=== PATIENT | female | born 1950 | race Caucasian/White ===

== ENCOUNTER → 2016-11-11 | Outpatient (CLI) | payer MEDICAID ==
[2016-11-11 19:13] LABS: AMPHETAMINES/METAMPHETAMINES NEGATIVE ng/mL (<1000)
== END ==
LOC: LAB 17:44
PROVIDERS: Emergency Medicine
DX: Z79.899 Other long term (current) drug therapy (principal)

== ENCOUNTER → 2017-01-07 | Outpatient (CLI) | payer MEDICAID ==
[2017-01-07 19:16] LABS: AMPHETAMINES/METAMPHETAMINES NEGATIVE ng/mL (<1000)
== END ==
LOC: LAB 18:25
PROVIDERS: Emergency Medicine
DX: Z79.899 Other long term (current) drug therapy (principal)

== ENCOUNTER → 2017-03-05 | Outpatient (CLI) | payer MEDICARE, MEDICAID ==
--- NOTE | 2017-03-05 14:21 | CARDIOVASCULAR REPORT ---
"Cerebrovascular Exam Indications: 785.9 Bruit. 433.10 Occlusion/stenosis of carotid artery without cerebral infarction. IMPRESSIONS 1. The bilateral vertebral arteries are patent with normal antegrade flow. 2. Study suggests 20-49%(upper end of scale)stenosis involving the right internal carotid artery and the left internal carotid artery. History: A bruit of the right carotid artery. A bruit of the left carotid artery. Coronary artery disease. Risk factors: Hypertension. Hyperlipidemia. Carotid duplex study. Complete study and Doppler flow study including spectral analysis, color and gardner scale imaging. Height: Height: 157.5cm. Height: 62in. Weight: Weight: 103.4kg. Weight: 227.5lb. Body mass index: BMI: 41.7kg/m^2. Body surface area: BSA: 2.18m^2. Location: Vascular laboratory. Patient status: Outpatient. Tables: Arterial flow: + +--------+--------+ |Location |V sys |V ed | + +--------+--------+ |Right CCA - proximal|40.1cm/s|10.2cm/s| + +--------+--------+ |Right CCA - distal |57.4cm/s|15.7cm/s| + +--------+--------+ |Right ECA |299cm/s |--------| + +--------+--------+ |Right ICA - proximal|107cm/s |23.6cm/s| + +--------+--------+ |Right ICA - mid |121cm/s |25.1cm/s| + +--------+--------+ |Right ICA - distal |80.1cm/s|20.4cm/s| + +--------+--------+ |Right vertebral |59.7cm/s|--------| + +--------+--------+ |Left CCA - proximal |69.1cm/s|18.9cm/s| + +--------+--------+ |Left CCA - distal |56.1cm/s|15.7cm/s| + +--------+--------+ |Left ECA |121cm/s |--------| + +--------+--------+ |Left ICA - proximal |119cm/s |24.7cm/s| + +--------+--------+ |Left ICA - mid |89.8cm/s|24.7cm/s| + +--------+--------+ |Left ICA - distal |88.7cm/s|19.1cm/s| + +--------+--------+ |Left vertebral |50.5cm/s|--------| + +--------+--------+ Velocity ratios: + + + + + + | |Right, V sys|Right, V ed|Left, V sys|Left, V ed| + + + + + + |Max ICA/dist CCA|2.11 |1.6 |2.12 |1.57 | + + + + + + (Report amended ) Electronically signed by: Chema Trujillo [id number]"
[2017-03-05 18:58] LABS: AMPHETAMINES/METAMPHETAMINES NEGATIVE ng/mL (<1000)
[2017-03-09 16:36] LABS: Alprazolam Negative (Cutoff=100); Benzodiazepines Negative ng/mL (Cutoff=100); Clonazepam Negative (Cutoff=100); Flurazepam Negative (Cutoff=100); Lorazepam Negative (Cutoff=100); Midazolam Negative (Cutoff=100); Temazepam Negative (Cutoff=100); Triazolam Negative (Cutoff=100)
== END ==
LOC: LAB 13:36 → RT 13:36
PROVIDERS: Emergency Medicine
DX: R09.89 Other specified symptoms and signs involving the circulatory and respiratory systems (principal); Z79.899 Other long term (current) drug therapy
CPT/HCPCS: G0480